=== PATIENT | female | born 1970 | race Caucasian/White ===

== ENCOUNTER 2020-09-02 01:25 | Emergency (ER) | payer OTHER ==
[~2020-09-02] VITALS: Ht 157.5 cm; Wt 92.1 kg
[2020-09-02 01:44] VITALS: BP 128/99
[2020-09-02] MEDS ORDERED: IBUP-2218 PO (02:56)
[2020-09-02 03:11] VITALS: BP 128/99
== END 2020-09-02 03:11 | disposition home or self-care (01) ==
LOC: MED 01:25
DX: S50.11XA Contusion of right forearm, initial encounter (principal); M25.551 Pain in right hip; Z88.0 Allergy status to penicillin; Z79.899 Other long term (current) drug therapy; W19.XXXA Unspecified fall, initial encounter; Y93.89 Activity, other specified; Y92.89 Other specified places as the place of occurrence of the external cause; Y99.8 Other external cause status
CPT/HCPCS: 73090; 73502; 99284